=== PATIENT | male | born 1975 | race African-American/Black ===

== ENCOUNTER 2018-09-10 09:55 | Inpatient (IN) | payer MEDICAID ==
[~2018-09-10] VITALS: Ht 175.3 cm; Wt 105.7 kg
[~2018-09-10 09:55] MED LIST: GLYB5TAB7; LISI-604; METF-414
[2018-09-10] MEDS ORDERED: FAMOTIDINE 20MG/2ML VIAL IV STA (15:20)
[2018-09-10] MEDS ORDERED: MORPHINE SULFATE 4 MG/ML CPJ (NOT FOR IM USE) IV STA (15:20)
[2018-09-10] MEDS ORDERED: SODIUM CHLORIDE 0.9% 1,000 ML IV ONE (15:20)
[2018-09-10] MEDS ORDERED: ONDANSETRON HCL 4MG/2ML INJ IV STA (15:20)
[2018-09-10 15:50] LABS: BASOPHILS % 1.1 % (0.0-2.0); EOSINOPHILS % 0.1 % (0.0-5.0); HEMATOCRIT. 40.7 % (42.0-52.0); HEMOGLOBIN. 13.2 g/dL (14.0-18.0); LYMPHOCYTES % 15.4 % (20.0-50.0); MEAN CORPUSCULAR HEMOGLOBIN 32.4 pg (28.0-32.0); MEAN PLATELET VOLUME 9.2 fl (7.4-10.4); MONOCYTES % 7.4 % (2.0-8.0); PLATELET 325 x1000/uL (130-400); RED BLOOD CELL COUNT 4.07 mill/uL (4.7-6.1); RED CELL DISTRIBUTION WIDTH 14.6 % (11.6-14.6)
[2018-09-10 15:51] LABS: INR 0.9; PROTHROMBIN TIME 9.5 sec (9.1-11.1)
[2018-09-10 15:52] LABS: CHLORIDE 111 mEq/L (98-107)
[2018-09-10 15:57] LABS: ETHANOL BLOOD < 10 mg/dL
[2018-09-10 17:04] LABS: CLARITY URINE CLEAR (CLEAR); COLOR URINE YELLOW (YELLOW); KETONES URINE TRACE (NEGATIVE); LEUKOCYTE ESTERASE URINE NEGATIVE (NEGATIVE); NITRITE URINE NEGATIVE (NEGATIVE); OCCULT BLOOD URINE TRACE (NEGATIVE); PH URINE 5.5 (4.5-8.0); PROTEIN URINE 4+ (NEGATIVE); SPECIFIC GRAVITY URINE 1.023 (1.005-1.030)
[2018-09-10 17:14] LABS: *AMPHETAMINES SCREEN URINE NEGATIVE (NEGATIVE); *BARBITURATES SCREEN URINE NEGATIVE (NEGATIVE); *BENZODIAZEPINES SCREEN URINE NEGATIVE (NEGATIVE); *COCAINE SCREEN URINE NEGATIVE (NEGATIVE); METHADONE URINE SCREEN NEGATIVE (NEGATIVE); OPIATES URINE SCREEN PRESUMTIVE POSITIVE (NEGATIVE)
[2018-09-10 17:15] LABS: CANNABINOID URINE SCREEN PRESUMTIVE POSITIVE (NEGATIVE); PHENCYCLIDINE URINE SCREEN NEGATIVE (NEGATIVE)
[2018-09-10] MEDS ORDERED: METRONIDAZOLE 500 MG PREMIX 100 ML IV ONE (17:15)
[2018-09-10] MEDS ORDERED: LEVOFLOXACIN 750MG PREMIX 150 ML IV ONE (17:15)
[2018-09-10] MEDS ORDERED: HYDRALAZINE 20MG/ML VIAL IV ONE (17:30)
[2018-09-10] MEDS ORDERED: HYDROMORPHONE HCL/PF 2MG/ML CPJ IV PRN (20:30)
[2018-09-10] MEDS ORDERED: ONDANSETRON HCL 4MG/2ML INJ IV PRN (20:30)
[2018-09-10] MEDS ORDERED: ACETAMINOPHEN 650MG SUPP PR PRN (20:30)
[2018-09-10 22:00] VITALS: BP 162/101
[2018-09-10 22:51] VITALS: BP 156/90
[2018-09-11] VITALS: BP 177/98
[2018-09-11] MEDS: METRONIDAZOLE 500 MG PREMIX 100 ML IV SCH ×3 (00:19→18:27)
[2018-09-11] MEDS: DEXT 5%/0.45% NACL 1000ML 1,000 ML IV SCH ×3 (00:19→23:45)
[2018-09-11] MEDS: CLONIDINE 0.1MG TABLET PO PRN ×2 (03:37→03:52)
[2018-09-11 04:00] VITALS: BP 187/110
[2018-09-11 06:22] LABS: BASOPHILS % 0.3 % (0.0-2.0); EOSINOPHILS % 1.1 % (0.0-5.0); HEMATOCRIT. 34.8 % (42.0-52.0); HEMOGLOBIN. 11.3 g/dL (14.0-18.0); LYMPHOCYTES % 18.8 % (20.0-50.0); MEAN CORPUSCULAR HEMOGLOBIN 32.4 pg (28.0-32.0); MEAN CORPUSCULAR VOLUME 100.1 fL (80.0-94.0); MEAN PLATELET VOLUME 9.2 fl (7.4-10.4); MONOCYTES % 8.9 % (2.0-8.0); NEUTROPHILS % 70.9 % (40.0-76.0); PLATELET 261 x1000/uL (130-400); RED BLOOD CELL COUNT 3.48 mill/uL (4.7-6.1); RED CELL DISTRIBUTION WIDTH 14.7 % (11.6-14.6)
[2018-09-11 06:29] LABS: CHLORIDE 109 mEq/L (98-107)
[2018-09-11 12:00] VITALS: BP 146/88
[2018-09-11] MEDS ORDERED: CLONIDINE HCL 0.1MG/24HR PATCH TD SCH (14:00)
[2018-09-11 16:00] VITALS: BP 139/88
[2018-09-11] MEDS ORDERED: DEXTROSE 50% WATER 50ML SYRINGE IV PRN (16:30)
[2018-09-11] MEDS ORDERED: LEVOFLOXACIN 500MG PREMIX 100 ML IV SCH ×2 (17:00→18:00)
[2018-09-11] MEDS: BLOOD SUGAR DIAGNOSTIC STRIP TEST SCH ×2 (18:00→21:00)
[2018-09-11] MEDS: INSULIN LISPRO 100 UNITS/ML SUBCUT SCH ×3 (18:28→23:25)
[2018-09-11] MEDS ORDERED: GABA-529 PO (18:54)
[2018-09-11] MEDS ORDERED: ASPI-1158 MT (18:54)
[2018-09-11] MEDS ORDERED: GLIP10TA10 MT (18:54)
[2018-09-11] MEDS ORDERED: ATOR40TA70 MT (18:54)
[2018-09-11] MEDS ORDERED: METF-816 PO (18:54)
[2018-09-11 20:00] VITALS: BP 163/92
[2018-09-12] VITALS: BP 157/98
[2018-09-12] MEDS: METRONIDAZOLE 500 MG PREMIX 100 ML IV SCH ×2 (02:18→09:33)
[2018-09-12 04:00] VITALS: BP 184/99
[2018-09-12] MEDS: CLONIDINE 0.1MG TABLET PO PRN ×2 (04:45→09:33)
[2018-09-12] MEDS: BLOOD SUGAR DIAGNOSTIC STRIP TEST SCH ×2 (07:20→12:40)
[2018-09-12] MEDS: INSULIN LISPRO 100 UNITS/ML SUBCUT SCH (07:50)
[2018-09-12 08:00] VITALS: BP 152/92
[2018-09-12 12:00] VITALS: BP 160/96
[2018-09-12 13:18] VITALS: BP 160/92
== END 2018-09-12 14:01 | disposition home or self-care (01) | DRG 249 ==
LOC: ER 10:40 → 6EST 17:21 → ENRESERV 19:31 → SUPCPDRO 20:27
PROVIDERS: ADMIT Hospitalist; ATTEND Hospitalist
DX: K52.9 Noninfective gastroenteritis and colitis, unspecified (principal); E11.9 Type 2 diabetes mellitus without complications; I10 Essential (primary) hypertension; F17.200 Nicotine dependence, unspecified, uncomplicated; Z88.1 Allergy status to other antibiotic agents; Z79.899 Other long term (current) drug therapy
CPT/HCPCS: 36415; 74176; 80305; 82962; 83605; 84484; 93970; 96361; 96374; 96375; 99285; J0360; J1170; J1815; J1956; J2270; J2405; J3490; J7030

== ENCOUNTER 2018-09-15 14:44 | Emergency (ER) | payer SELFPAY ==
[~2018-09-15 14:44] MED LIST changes: +ASPI-1158 MT; +ATOR40TA70 MT; +GABA-529 PO; +GLIP10TA10 MT; +METF-816 PO
== END 2018-09-15 15:19 | disposition left against medical advice (07) ==
LOC: ER 14:44
DX: Z53.21 Procedure and treatment not carried out due to patient leaving prior to being seen by health care provider (principal)

== ENCOUNTER 2018-09-28 10:54 | Emergency (ER) | payer OTHER, MEDICAID ==
[~2018-09-28] VITALS: Ht 175.3 cm; Wt 112.0 kg
[2018-09-28 14:37] LABS: BASOPHILS % 0.4 % (0.0-2.0); EOSINOPHILS % 0.4 % (0.0-5.0); HEMOGLOBIN. 11.5 g/dL (14.0-18.0); LYMPHOCYTES % 24.7 % (20.0-50.0); MEAN CORPUSCULAR HEMOGLOBIN 32.8 pg (28.0-32.0); MEAN CORPUSCULAR VOLUME 99.8 fL (80.0-94.0); MEAN PLATELET VOLUME 8.8 fl (7.4-10.4); MONOCYTES % 8.4 % (2.0-8.0); NEUTROPHILS % 66.1 % (40.0-76.0); PLATELET 224 x1000/uL (130-400); RED BLOOD CELL COUNT 3.51 mill/uL (4.7-6.1)
[2018-09-28 14:39] LABS: CHLORIDE 106 mEq/L (98-107)
[2018-09-28 14:46] LABS: ETHANOL BLOOD < 10 mg/dL
[2018-09-28 15:23] LABS: CLARITY URINE CLEAR (CLEAR); COLOR URINE YELLOW (YELLOW); KETONES URINE NEGATIVE (NEGATIVE); LEUKOCYTE ESTERASE URINE NEGATIVE (NEGATIVE); NITRITE URINE NEGATIVE (NEGATIVE); OCCULT BLOOD URINE 1+ (NEGATIVE); PROTEIN URINE 4+ (NEGATIVE); SPECIFIC GRAVITY URINE 1.015 (1.005-1.030)
[2018-09-28 15:34] LABS: *AMPHETAMINES SCREEN URINE NEGATIVE (NEGATIVE); *BARBITURATES SCREEN URINE NEGATIVE (NEGATIVE); *BENZODIAZEPINES SCREEN URINE NEGATIVE (NEGATIVE); *COCAINE SCREEN URINE NEGATIVE (NEGATIVE); METHADONE URINE SCREEN NEGATIVE (NEGATIVE)
[2018-09-28 15:35] LABS: CANNABINOID URINE SCREEN PRESUMTIVE POSITIVE (NEGATIVE); OPIATES URINE SCREEN NEGATIVE (NEGATIVE); PHENCYCLIDINE URINE SCREEN NEGATIVE (NEGATIVE)
[2018-09-28 17:00] VITALS: BP 129/89
== END 2018-09-28 17:02 | disposition home or self-care (01) ==
LOC: ER 12:45
DX: K80.70 Calculus of gallbladder and bile duct without cholecystitis without obstruction (principal); K76.0 Fatty (change of) liver, not elsewhere classified; E11.9 Type 2 diabetes mellitus without complications; I10 Essential (primary) hypertension; E78.00 Pure hypercholesterolemia, unspecified; H40.9 Unspecified glaucoma; F12.10 Cannabis abuse, uncomplicated; F17.210 Nicotine dependence, cigarettes, uncomplicated; Z87.828 Personal history of other (healed) physical injury and trauma; Z88.0 Allergy status to penicillin; Z79.82 Long term (current) use of aspirin; Z79.84 Long term (current) use of oral hypoglycemic drugs; Z98.890 Other specified postprocedural states
CPT/HCPCS: 36415; 71045; 76705; 80053; 80305; 80320; 81003; 83690; 84484; 85025; 93005; 99284; Z7610; G0480

== ENCOUNTER 2019-07-05 10:51 | Emergency (ER) | payer MEDICAID, OTHER ==
[~2019-07-05] VITALS: Ht 182.9 cm; Wt 95.0 kg
[2019-07-05 11:10] VITALS: BP 125/79
[2019-07-05] MEDS ORDERED: ACETAMINOPHEN 325MG TABLET PO ONE (11:45)
[2019-07-05] MEDS ORDERED: FLUORESCEIN SODIUM 1MG/STRIP BOTHEYE ONE (11:45)
[2019-07-05] MEDS ORDERED: TETRACAINE 0.5% OPHTH DROPS 4ML BOTHEYE ONE (11:45)
== END 2019-07-05 12:32 | disposition home or self-care (01) ==
LOC: ER 10:51
DX: H53.143 Visual discomfort, bilateral (principal); E11.9 Type 2 diabetes mellitus without complications; E78.00 Pure hypercholesterolemia, unspecified; I10 Essential (primary) hypertension; H40.9 Unspecified glaucoma; F12.10 Cannabis abuse, uncomplicated; Z76.0 Encounter for issue of repeat prescription; Z79.84 Long term (current) use of oral hypoglycemic drugs; Z88.0 Allergy status to penicillin; Z79.82 Long term (current) use of aspirin
CPT/HCPCS: 99284

== ENCOUNTER 2019-08-08 16:19 | Emergency (ER) | payer MEDICAID | END 2019-08-08 17:03 | disposition left against medical advice (07) | LOC: ER 16:19 | DX: Z53.21 Procedure and treatment not carried out due to patient leaving prior to being seen by health care provider (principal) ==

== ENCOUNTER 2019-08-29 11:35 | Emergency (ER) | payer MEDICAID ==
[~2019-08-29] VITALS: Ht 180.3 cm; Wt 115.0 kg
[2019-08-29 14:50] VITALS: BP 132/70
== END 2019-08-29 14:50 | disposition home or self-care (01) ==
LOC: ER 11:35
DX: Z76.0 Encounter for issue of repeat prescription (principal); H40.9 Unspecified glaucoma; E78.00 Pure hypercholesterolemia, unspecified; E11.9 Type 2 diabetes mellitus without complications; F12.10 Cannabis abuse, uncomplicated; Z79.82 Long term (current) use of aspirin; Z79.84 Long term (current) use of oral hypoglycemic drugs; Z88.0 Allergy status to penicillin
CPT/HCPCS: 99283

== ENCOUNTER 2019-09-01 13:53 | Emergency (ER) | payer MEDICAID ==
[~2019-09-01] VITALS: Ht 180.3 cm; Wt 109.0 kg
[2019-09-01 17:53] LABS: CLARITY URINE CLEAR (CLEAR); COLOR URINE YELLOW (YELLOW); KETONES URINE NEGATIVE (NEGATIVE); LEUKOCYTE ESTERASE URINE NEGATIVE (NEGATIVE); NITRITE URINE NEGATIVE (NEGATIVE); OCCULT BLOOD URINE 1+ (NEGATIVE); PH URINE 6.5 (4.5-8.0); PROTEIN URINE 4+ (NEGATIVE); SPECIFIC GRAVITY URINE 1.017 (1.005-1.030); UROBILINOGEN URINE 0.2 E.U./dL (0.2-1.0)
[2019-09-01 18:00] LABS: EOSINOPHILS % 0.5 % (0.0-5.0); HEMATOCRIT. 35.8 % (42.0-52.0); HEMOGLOBIN. 11.8 g/dL (14.0-18.0); LYMPHOCYTES % 8.7 % (20.0-50.0); MEAN CORPUSCULAR HEMOGLOBIN 31.6 pg (28.0-32.0); MEAN CORPUSCULAR VOLUME 96.1 fL (80.0-94.0); MEAN PLATELET VOLUME 8.5 fl (7.4-10.4); MONOCYTES % 6.1 % (2.0-8.0); NEUTROPHILS % 83.7 % (40.0-76.0); PLATELET 236 x1000/uL (130-400); RED BLOOD CELL COUNT 3.73 mill/uL (4.7-6.1); RED CELL DISTRIBUTION WIDTH 14.4 % (11.6-14.6)
[2019-09-01 18:06] LABS: CHLORIDE 103 mEq/L (98-107)
[2019-09-01 18:13] LABS: BETA HYDROXYBUTYRATE 0.1 mMol/L (0.0-0.3)
[2019-09-01] MEDS ORDERED: SODIUM CHLORIDE 0.9% 1,000 ML IV ONE (18:47)
[2019-09-01 21:02] VITALS: BP 155/95
== END 2019-09-01 21:03 | disposition home or self-care (01) ==
LOC: ER 13:53
DX: J06.9 Acute upper respiratory infection, unspecified (principal); N48.1 Balanitis; E11.65 Type 2 diabetes mellitus with hyperglycemia; N17.9 Acute kidney failure, unspecified; I10 Essential (primary) hypertension; H40.9 Unspecified glaucoma; E78.00 Pure hypercholesterolemia, unspecified; F12.10 Cannabis abuse, uncomplicated; Z87.828 Personal history of other (healed) physical injury and trauma; Z90.49 Acquired absence of other specified parts of digestive tract; Z79.84 Long term (current) use of oral hypoglycemic drugs; Z98.890 Other specified postprocedural states; Z90.2 Acquired absence of lung [part of]; Z79.82 Long term (current) use of aspirin; Z88.0 Allergy status to penicillin
CPT/HCPCS: 36415; 80053; 81003; 82010; 82962; 83690; 85025; 96360; 99283; J7030; Z7610

== ENCOUNTER → 2019-10-03 | Emergency (ER) | payer MEDICAID ==
[~2019-10-03] VITALS: Ht 177.8 cm; Wt 109.0 kg
[~2019-10-03] MED LIST changes: +AMLO10TA80 PO; +BRIM5DRO6 LEFTEYE; +BRIM5DRO6 RIGHTEYE; +CHLO25TA2 PO; +DORZ10DR8 LEFTEYE; +DORZ10DR8 RIGHTEYE; +TIMO5DRO32 EACHEYE
[2019-10-03 18:02] VITALS: BP 189/102
== END | disposition left against medical advice (07) ==
LOC: ER 15:54
DX: Z53.21 Procedure and treatment not carried out due to patient leaving prior to being seen by health care provider (principal)

== ENCOUNTER 2019-10-18 12:50 | Emergency (ER) | payer MEDICAID ==
[~2019-10-18] VITALS: Ht 177.8 cm; Wt 104.5 kg
[~2019-10-18 12:50] MED LIST changes: -AMLO10TA80 PO; -BRIM5DRO6 LEFTEYE; -BRIM5DRO6 RIGHTEYE; -CHLO25TA2 PO; -DORZ10DR8 LEFTEYE; -DORZ10DR8 RIGHTEYE; -TIMO5DRO32 EACHEYE
[2019-10-18] MEDS ORDERED: AMLO10TA80 PO (13:25)
[2019-10-18] MEDS ORDERED: CHLO25TA2 PO (13:25)
[2019-10-18] MEDS ORDERED: BRIM5DRO6 LEFTEYE (13:30)
[2019-10-18] MEDS ORDERED: DORZ10DR8 LEFTEYE (13:30)
[2019-10-18] MEDS ORDERED: BRIM5DRO6 RIGHTEYE (13:30)
[2019-10-18] MEDS ORDERED: TIMO5DRO32 EACHEYE (13:30)
[2019-10-18] MEDS ORDERED: DORZ10DR8 RIGHTEYE (13:30)
[2019-10-18 15:31] LABS: BASOPHILS % 0.8 % (0.0-2.0); EOSINOPHILS % 2.3 % (0.0-5.0); HEMATOCRIT. 33.1 % (42.0-52.0); HEMOGLOBIN. 11.2 g/dL (14.0-18.0); LYMPHOCYTES % 22.9 % (20.0-50.0); MEAN CORPUSCULAR HEMOGLOBIN 32.7 pg (28.0-32.0); MEAN PLATELET VOLUME 8.5 fl (7.4-10.4); MONOCYTES % 7.5 % (2.0-8.0); NEUTROPHILS % 66.5 % (40.0-76.0); PLATELET 324 x1000/uL (130-400); RED BLOOD CELL COUNT 3.42 mill/uL (4.7-6.1); RED CELL DISTRIBUTION WIDTH 14.3 % (11.6-14.6)
[2019-10-18 15:38] LABS: CHLORIDE 114 mEq/L (98-107)
[2019-10-18 16:15] VITALS: BP 155/88
[2019-10-18 16:19] LABS: CLARITY URINE CLEAR (CLEAR); COLOR URINE YELLOW (YELLOW); KETONES URINE NEGATIVE (NEGATIVE); LEUKOCYTE ESTERASE URINE NEGATIVE (NEGATIVE); NITRITE URINE NEGATIVE (NEGATIVE); OCCULT BLOOD URINE NEGATIVE (NEGATIVE); PROTEIN URINE 3+ (NEGATIVE); SPECIFIC GRAVITY URINE 1.014 (1.005-1.030); UROBILINOGEN URINE 0.2 E.U./dL (0.2-1.0)
[2019-10-18 16:37] LABS: *AMPHETAMINES SCREEN URINE NEGATIVE (NEGATIVE)
[2019-10-18 16:38] LABS: *BARBITURATES SCREEN URINE NEGATIVE (NEGATIVE); *BENZODIAZEPINES SCREEN URINE NEGATIVE (NEGATIVE); *COCAINE SCREEN URINE NEGATIVE (NEGATIVE); METHADONE URINE SCREEN NEGATIVE (NEGATIVE); OPIATES URINE SCREEN NEGATIVE (NEGATIVE); PHENCYCLIDINE URINE SCREEN NEGATIVE (NEGATIVE)
[2019-10-18 16:39] LABS: CANNABINOID URINE SCREEN NEGATIVE (NEGATIVE)
== END 2019-10-18 18:00 | disposition left against medical advice (07) ==
LOC: ER 12:50
DX: N17.0 Acute kidney failure with tubular necrosis (principal); E11.21 Type 2 diabetes mellitus with diabetic nephropathy; E86.0 Dehydration; E87.8 Other disorders of electrolyte and fluid balance, not elsewhere classified; R22.42 Localized swelling, mass and lump, left lower limb; I10 Essential (primary) hypertension; H40.9 Unspecified glaucoma; F12.10 Cannabis abuse, uncomplicated; R79.89 Other specified abnormal findings of blood chemistry; Z87.828 Personal history of other (healed) physical injury and trauma; Z98.890 Other specified postprocedural states; Z79.84 Long term (current) use of oral hypoglycemic drugs; Z79.82 Long term (current) use of aspirin; Z88.0 Allergy status to penicillin
CPT/HCPCS: 36415; 71045; 80053; 80305; 81003; 83880; 84484; 85025; 93005; 99285

== ENCOUNTER 2019-10-30 13:49 | Emergency (ER) | payer MEDICAID ==
[~2019-10-30] VITALS: Ht 177.8 cm; Wt 107.0 kg
[~2019-10-30 13:49] MED LIST changes: +AMLO10TA80 PO; +BRIM5DRO6 LEFTEYE; +BRIM5DRO6 RIGHTEYE; +CHLO25TA2 PO; +DORZ10DR8 LEFTEYE; +DORZ10DR8 RIGHTEYE; -GLYB5TAB7; -METF-414; -METF-816 PO; +TIMO5DRO32 EACHEYE
[2019-10-30 13:56] VITALS: BP 148/91
== END 2019-10-30 15:25 | disposition home or self-care (01) ==
LOC: ER 13:49
DX: R60.0 Localized edema (principal); H40.9 Unspecified glaucoma; E11.9 Type 2 diabetes mellitus without complications; I10 Essential (primary) hypertension; Z98.890 Other specified postprocedural states; Z88.1 Allergy status to other antibiotic agents; Z79.899 Other long term (current) drug therapy; Z76.0 Encounter for issue of repeat prescription
CPT/HCPCS: 99283

== ENCOUNTER 2020-08-08 16:12 | Emergency (ER) | payer MEDICAID ==
[~2020-08-08] VITALS: Ht 180.3 cm; Wt 111.0 kg
[2020-08-08 16:14] VITALS: BP 182/105
[2020-08-08 21:07] LABS: EOSINOPHILS % 0.3 % (0.0-5.0); HEMATOCRIT. 34.2 % (42.0-52.0); HEMOGLOBIN. 11.6 g/dL (14.0-18.0); LYMPHOCYTES % 20.6 % (20.0-50.0); MEAN CORPUSCULAR HEMOGLOBIN 33.8 pg (28.0-32.0); MEAN CORPUSCULAR VOLUME 99.6 fL (80.0-94.0); MEAN PLATELET VOLUME 8.6 fl (7.4-10.4); MONOCYTES % 7.6 % (2.0-8.0); NEUTROPHILS % 70.5 % (40.0-76.0); PLATELET 270 x1000/uL (130-400); RED BLOOD CELL COUNT 3.43 mill/uL (4.7-6.1); RED CELL DISTRIBUTION WIDTH 14.1 % (11.6-14.6)
[2020-08-08 21:12] LABS: CHLORIDE 107 mEq/L (98-107)
[2020-08-08] MEDS ORDERED: DIPHENHYDRAMINE 50MG/ML VIAL IV ONE (23:45)
[2020-08-08] MEDS ORDERED: PROCHLORPERAZINE 10MG/2ML VIAL IV ONE (23:45)
[2020-08-08] MEDS ORDERED: FUROSEMIDE 40MG/4ML VIAL IVP ONE (23:45)
== END 2020-08-09 02:10 | disposition home or self-care (01) ==
LOC: ER 16:33
DX: I11.0 Hypertensive heart disease with heart failure (principal); G43.809 Other migraine, not intractable, without status migrainosus; E11.9 Type 2 diabetes mellitus without complications; I50.9 Heart failure, unspecified; H40.9 Unspecified glaucoma; F17.210 Nicotine dependence, cigarettes, uncomplicated; Z87.828 Personal history of other (healed) physical injury and trauma; Z90.49 Acquired absence of other specified parts of digestive tract; Z88.0 Allergy status to penicillin
CPT/HCPCS: 36415; 71045; 80053; 82962; 83880; 84484; 85025; 93005; 96374; 96375; 99285; J0780; J1200; J1940

== ENCOUNTER 2020-09-25 11:22 | Emergency (ER) | payer MEDICAID ==
[~2020-09-25] VITALS: Ht 177.8 cm; Wt 80.0 kg
[~2020-09-25 11:22] MED LIST changes: -ASPI-1158 MT; +ASPI-1406 MT; -LISI-604; +LISI20TA31
[2020-09-25 12:55] LABS: BASOPHILS % 0.8 % (0.0-2.0); HEMATOCRIT. 37.3 % (42.0-52.0); HEMOGLOBIN. 12.2 g/dL (14.0-18.0); LYMPHOCYTES % 15.1 % (20.0-50.0); MEAN CORPUSCULAR VOLUME 100.8 fL (80.0-94.0); MEAN PLATELET VOLUME 9.6 fl (7.4-10.4); MONOCYTES % 5.2 % (2.0-8.0); NEUTROPHILS % 78.9 % (40.0-76.0); PLATELET 243 x1000/uL (130-400); RED CELL DISTRIBUTION WIDTH 13.7 % (11.6-14.6)
[2020-09-25 13:03] LABS: CHLORIDE 111 mEq/L (98-107)
[2020-09-25] MEDS ORDERED: SODIUM CHLORIDE 0.9% 500 ML IV ONE (13:30)
[2020-09-25] MEDS ORDERED: FUROSEMIDE 20MG/2ML VIAL IVP ONE (13:30)
[2020-09-25] MEDS ORDERED: MAGNESIUM/ALUMINUM HYDROXIDE/SIMETHICONE 30ML UDC PO STA (14:34)
[2020-09-25] MEDS ORDERED: VISCOUS LIDOCAINE 2% 15 ML UDC PO STA (14:34)
[2020-09-25 14:59] VITALS: BP 158/85
== END 2020-09-25 15:23 | disposition home or self-care (01) ==
LOC: ER 11:36
DX: I13.0 Hypertensive heart and chronic kidney disease with heart failure and stage 1 through stage 4 chronic kidney disease, or unspecified chronic kidney disease (principal); E11.22 Type 2 diabetes mellitus with diabetic chronic kidney disease; N18.9 Chronic kidney disease, unspecified; I50.9 Heart failure, unspecified; D63.1 Anemia in chronic kidney disease; E87.5 Hyperkalemia; F12.10 Cannabis abuse, uncomplicated; F17.210 Nicotine dependence, cigarettes, uncomplicated; Z03.818 Encounter for observation for suspected exposure to other biological agents ruled out; Z88.0 Allergy status to penicillin
CPT/HCPCS: 36415; 71045; 80053; 83880; 84484; 85025; 93005; 96374; 99285; C9803; J1940; J7040; U0003; Z7610

== ENCOUNTER 2020-09-30 07:49 | Inpatient (IN) | payer MEDICAID ==
[~2020-09-30] VITALS: Ht 177.8 cm; Wt 98.2 kg
[2020-09-30 08:00] VITALS: BP 158/88
[2020-09-30] MEDS ORDERED: ONDANSETRON HCL 4MG/2ML INJ IV STA (08:08)
[2020-09-30] MEDS ORDERED: FAMOTIDINE 20MG/2ML VIAL IV STA (08:08)
[2020-09-30 08:46] LABS: BASOPHILS % 1.3 % (0.0-2.0); EOSINOPHILS % 0.1 % (0.0-5.0); HEMATOCRIT. 37.2 % (42.0-52.0); HEMOGLOBIN. 12.2 g/dL (14.0-18.0); LYMPHOCYTES % 14.1 % (20.0-50.0); MEAN CORPUSCULAR HEMOGLOBIN 32.9 pg (28.0-32.0); MEAN CORPUSCULAR VOLUME 100.6 fL (80.0-94.0); MEAN PLATELET VOLUME 8.8 fl (7.4-10.4); MONOCYTES % 4.2 % (2.0-8.0); NEUTROPHILS % 80.3 % (40.0-76.0); PLATELET 238 x1000/uL (130-400); RED CELL DISTRIBUTION WIDTH 13.8 % (11.6-14.6)
[2020-09-30 08:53] LABS: INR 1.1; PROTHROMBIN TIME 11.9 sec (9.6-11.0)
[2020-09-30 08:59] LABS: CHLORIDE 113 mEq/L (98-107)
[2020-09-30] MEDS ORDERED: CHLORDIAZEPOXIDE 25MG CAPSULE PO ONE (11:00)
[2020-09-30] MEDS ORDERED: AMLODIPINE 10MG TABLET PO ONE (11:45)
[2020-09-30 12:20] LABS: CLARITY URINE CLEAR (CLEAR); COLOR URINE YELLOW (YELLOW); KETONES URINE NEGATIVE (NEGATIVE); LEUKOCYTE ESTERASE URINE NEGATIVE (NEGATIVE); NITRITE URINE NEGATIVE (NEGATIVE); OCCULT BLOOD URINE NEGATIVE (NEGATIVE); PH URINE 5.5 (4.5-8.0); PROTEIN URINE 3+ (NEGATIVE); SPECIFIC GRAVITY URINE 1.014 (1.005-1.030); UROBILINOGEN URINE 0.2 E.U./dL (0.2-1.0)
[2020-09-30] MEDS ORDERED: LORAZEPAM 2MG/ML CPJ IV PRN (13:00)
[2020-09-30 15:18] VITALS: BP 158/88
[2020-09-30 16:00] VITALS: BP 169/90
[2020-09-30] MEDS: DEXT 5%/0.45% NACL 1000ML 1,000 ML IV SCH ×2 (16:28→22:56)
[2020-09-30] MEDS: THIAMINE HCL 100MG TABLET PO SCH (16:43)
[2020-09-30] MEDS: PANTOPRAZOLE SODIUM 40 MG/VIAL IV SCH (16:43)
[2020-09-30] MEDS: MULTIVITAMINS,THER W-MINERALS TABLET PO SCH (16:43)
[2020-09-30] MEDS: CHLORDIAZEPOXIDE 25MG CAPSULE PO SCH (20:39)
[2020-09-30] MEDS: ONDANSETRON HCL 4MG/2ML INJ IV PRN (20:39)
[2020-09-30] MEDS: HYDROMORPHONE HCL/PF 2MG/ML CPJ IV PRN (22:56)
[2020-10-01] MEDS: CLONIDINE 0.1MG TABLET PO PRN ×2 (04:03→18:26)
[2020-10-01 06:57] LABS: BASOPHILS % 0.3 % (0.0-2.0); EOSINOPHILS % 0.9 % (0.0-5.0); HEMATOCRIT. 32.8 % (42.0-52.0); HEMOGLOBIN. 10.9 g/dL (14.0-18.0); LYMPHOCYTES % 19.9 % (20.0-50.0); MEAN CORPUSCULAR HEMOGLOBIN 33.3 pg (28.0-32.0); MEAN CORPUSCULAR VOLUME 100.1 fL (80.0-94.0); MEAN PLATELET VOLUME 9.2 fl (7.4-10.4); MONOCYTES % 6.7 % (2.0-8.0); NEUTROPHILS % 72.2 % (40.0-76.0); PLATELET 175 x1000/uL (130-400); RED BLOOD CELL COUNT 3.28 mill/uL (4.7-6.1); RED CELL DISTRIBUTION WIDTH 13.8 % (11.6-14.6)
[2020-10-01 07:05] LABS: CHLORIDE 113 mEq/L (98-107)
[2020-10-01] MEDS ORDERED: DEXTROSE 50% WATER 50ML SYRINGE IV PRN (07:30)
[2020-10-01] MEDS: BLOOD SUGAR DIAGNOSTIC STRIP TEST SCH ×4 (07:40→21:10)
[2020-10-01] MEDS: PANTOPRAZOLE SODIUM 40 MG/VIAL IV SCH (08:13)
[2020-10-01] MEDS: MULTIVITAMINS,THER W-MINERALS TABLET PO SCH (08:13)
[2020-10-01] MEDS: HYDROMORPHONE HCL/PF 2MG/ML CPJ IV PRN ×3 (08:13→18:44)
[2020-10-01] MEDS: CHLORDIAZEPOXIDE 25MG CAPSULE PO SCH ×3 (08:13→21:10)
[2020-10-01] MEDS: THIAMINE HCL 100MG TABLET PO SCH (08:14)
[2020-10-01] MEDS: INSULIN LISPRO 100 UNITS/ML SUBCUT SCH ×4 (08:15→21:22)
[2020-10-01] MEDS: ONDANSETRON HCL 4MG/2ML INJ IV PRN ×2 (12:57→18:44)
[2020-10-01] MEDS: DEXT 5%/0.45% NACL 1000ML 1,000 ML IV SCH (14:07)
[2020-10-01 20:00] VITALS: BP 140/87
[2020-10-02] VITALS: BP 152/95
[2020-10-02] MEDS: HYDROMORPHONE HCL/PF 2MG/ML CPJ IV PRN ×2 (00:59→05:49)
[2020-10-02] MEDS: ONDANSETRON HCL 4MG/2ML INJ IV PRN ×2 (01:00→05:47)
[2020-10-02 04:00] VITALS: BP 157/89
[2020-10-02] MEDS: DEXT 5%/0.45% NACL 1000ML 1,000 ML IV SCH (05:50)
[2020-10-02] MEDS: CHLORDIAZEPOXIDE 25MG CAPSULE PO SCH ×2 (05:51→13:21)
[2020-10-02 06:56] LABS: BASOPHILS % 0.4 % (0.0-2.0); EOSINOPHILS % 0.7 % (0.0-5.0); HEMATOCRIT. 31.4 % (42.0-52.0); HEMOGLOBIN. 10.4 g/dL (14.0-18.0); LYMPHOCYTES % 16.1 % (20.0-50.0); MEAN CORPUSCULAR HEMOGLOBIN 33.4 pg (28.0-32.0); MEAN CORPUSCULAR VOLUME 100.8 fL (80.0-94.0); MEAN PLATELET VOLUME 9.3 fl (7.4-10.4); MONOCYTES % 7.2 % (2.0-8.0); NEUTROPHILS % 75.6 % (40.0-76.0); PLATELET 161 x1000/uL (130-400); RED BLOOD CELL COUNT 3.11 mill/uL (4.7-6.1); RED CELL DISTRIBUTION WIDTH 13.8 % (11.6-14.6)
[2020-10-02] MEDS: BLOOD SUGAR DIAGNOSTIC STRIP TEST SCH ×2 (06:58→11:41)
[2020-10-02 07:04] LABS: CHLORIDE 110 mEq/L (98-107)
[2020-10-02] MEDS: INSULIN LISPRO 100 UNITS/ML SUBCUT SCH ×2 (07:17→11:45)
[2020-10-02 08:00] VITALS: BP 130/76
[2020-10-02] MEDS: THIAMINE HCL 100MG TABLET PO SCH (08:26)
[2020-10-02] MEDS: MULTIVITAMINS,THER W-MINERALS TABLET PO SCH (08:26)
[2020-10-02] MEDS ORDERED: FAMOTIDINE 20MG/2ML VIAL IV SCH (09:00)
[2020-10-02] MEDS ORDERED: POTASSIUM CHLORIDE 20MEQ TABLET SR PO NR (11:15)
[2020-10-02 12:00] VITALS: BP 157/92
== END 2020-10-02 14:22 | disposition left against medical advice (07) | DRG 282 ==
LOC: ER 07:49 → 8WST 11:05 → EDBEDREQSVC 11:07 → EDBEDREQ 11:07 → EDBEDREQTM 11:07 → ENRESERV 12:33 → 8WST 14:37
PROVIDERS: ADMIT Hospitalist; ATTEND Hospitalist
DX: K85.90 Acute pancreatitis without necrosis or infection, unspecified (principal); R19.7 Diarrhea, unspecified; N17.9 Acute kidney failure, unspecified; F10.139 Alcohol abuse with withdrawal, unspecified; Y90.9 Presence of alcohol in blood, level not specified; R74.01 Elevation of levels of liver transaminase levels; E11.9 Type 2 diabetes mellitus without complications; E43 Unspecified severe protein-calorie malnutrition; I11.0 Hypertensive heart disease with heart failure; I50.9 Heart failure, unspecified; Z88.1 Allergy status to other antibiotic agents; Z79.82 Long term (current) use of aspirin; Z79.899 Other long term (current) drug therapy; Z82.49 Family history of ischemic heart disease and other diseases of the circulatory system; Z68.31 Body mass index [BMI] 31.0-31.9, adult
CPT/HCPCS: 36415; 74176; 80053; 81003; 82962; 83036; 85025; 93005; 96374; 99285; C1893; C9113; J1170; J1815; J2405; J3490

== ENCOUNTER 2020-10-29 14:01 | Emergency (ER) | payer MEDICAID ==
[~2020-10-29] VITALS: Ht 172.7 cm; Wt 105.0 kg
[2020-10-29] MEDS ORDERED: CHLO25TA2 PO (16:12)
[2020-10-29 16:30] VITALS: BP 160/89
== END 2020-10-29 16:31 | disposition home or self-care (01) ==
LOC: ER 14:01
DX: Z76.0 Encounter for issue of repeat prescription (principal); I11.0 Hypertensive heart disease with heart failure; I50.9 Heart failure, unspecified; E11.9 Type 2 diabetes mellitus without complications; H40.9 Unspecified glaucoma; F12.10 Cannabis abuse, uncomplicated; Z87.891 Personal history of nicotine dependence; Z79.82 Long term (current) use of aspirin; Z88.0 Allergy status to penicillin
CPT/HCPCS: 99281

== ENCOUNTER 2021-03-22 15:53 | Emergency (ER) | payer MEDICAID ==
[~2021-03-22] VITALS: Ht 175.3 cm; Wt 102.0 kg
[2021-03-22 16:14] VITALS: BP 164/100
[2021-03-22] MEDS ORDERED: CARV3.1242 MT (17:40)
[2021-03-22] MEDS ORDERED: LOSA25TA26 MT (17:40)
== END 2021-03-22 17:48 | disposition home or self-care (01) ==
LOC: ER 15:53
DX: Z76.0 Encounter for issue of repeat prescription (principal); I50.9 Heart failure, unspecified; E11.9 Type 2 diabetes mellitus without complications; F12.10 Cannabis abuse, uncomplicated; Z79.899 Other long term (current) drug therapy; Z88.6 Allergy status to analgesic agent
CPT/HCPCS: 99283

== ENCOUNTER 2021-04-23 15:03 | Emergency (ER) | payer MEDICAID ==
[~2021-04-23] VITALS: Ht 175.3 cm; Wt 109.0 kg
[~2021-04-23 15:03] MED LIST changes: +CARV3.1242 MT; +LOSA25TA26 MT
[2021-04-23] MEDS ORDERED: LOSA25TA26 MT (15:34)
[2021-04-23] MEDS ORDERED: SPIR25TA MT (15:34)
[2021-04-23 15:54] VITALS: BP 159/76
== END 2021-04-23 15:55 | disposition home or self-care (01) ==
LOC: ER 15:03
DX: Z76.0 Encounter for issue of repeat prescription (principal); I11.0 Hypertensive heart disease with heart failure; I50.9 Heart failure, unspecified; F12.10 Cannabis abuse, uncomplicated; Z88.0 Allergy status to penicillin; Z98.890 Other specified postprocedural states
CPT/HCPCS: 99283